=== PATIENT | female | born 1970 | race Caucasian/White ===

== ENCOUNTER 2016-06-17 11:22 | Emergency (ER) | payer BC, OTHER ==
[~2016-06-17] VITALS: Ht 161.3 cm; Wt 81.0 kg
[~2016-06-17 11:22] MED LIST: ALBUAER19 INH
[2016-06-17 11:25] VITALS: TEMP 36.7; Ht 161.3 cm; Wt 81.0 kg
[2016-06-17] MEDS ORDERED: ASPIRIN 81 MG CHEW PO STA (11:41)
[2016-06-17] MEDS ORDERED: ALBUT/IPRATROP 3MG/0.5MG NEB 3 ML VIAL INH STA (11:41)
[2016-06-17] MEDS ORDERED: SODIUM CHLORIDE 0.9% 1000ML 1,000 ML IV STA (11:41)
[2016-06-17 11:46] VITALS: O2SAT 97
[2016-06-17 12:06] LABS: BASO % 0.5 %; BASO ABS # 0.05 K/uL (0-0.2); COMPLETE YES; EOS % 1.5 %; HEMATOCRIT 43.8 % (37-47); IG% 0.2 %; LYMPH ABS # 2.36 K/uL (1.2-3.4); MEAN CORPUSCULAR HEMOGLOBIN 29.5 pg (25-34); MEAN CORPUSCULAR HGB CONC 33.1 g/dl (32-36); MONO % 4.5 %; NEUT % 68.3 %; PLATELET COUNT 314 K/uL (130-400); RED BLOOD COUNT 4.92 M/uL (4.2-5.4); WHITE BLOOD COUNT 9.43 K/uL (4.8-10.8)
--- NOTE | 2016-06-17 12:13 | DIAGNOSTIC IMAGING REPORT ---
CHEST 2 VIEWS ROUTINE CLINICAL HISTORY: Chest pain. COMPARISON STUDY: Chest radiograph May 17, 2014. FINDINGS: Lung volumes are normal there is no pneumothorax or pleural effusion. Pulmonary vascularity is normal. Cardiac size is normal. Mediastinal contours are normal. There is no consolidation. IMPRESSION: No acute cardiopulmonary findings. Electronically signed by: John Bailey M.D. 06/17/2016 12:11 PM Dictated Date/Time: 06/17/2016 12:11 PM
[2016-06-17 12:23] LABS: PREG INTERNAL NEGATIVE QC NEG CLEAR BACKGROUND; PREG INTERNAL POSITIVE QC POS CONTROL LINE
[2016-06-17 12:24] LABS: BUN/CREATININE RATIO 12.1 (10-20); CALCIUM 8.8 mg/dl (8.5-10.1); CREATININE 0.68 mg/dl (0.60-1.20); POTASSIUM 4.5 mmol/L (3.5-5.1)
[2016-06-17 12:30] LABS: CKMB/CK RATIO 1.1 (0-3.0)
[2016-06-17 12:36] LABS: URINE APPEARANCE CLEAR (CLEAR); URINE BILIRUBIN NEG (NEG); URINE COLOR YELLOW; URINE NITRITE NEG (NEG); URINE PH 8.5 (4.5-7.5); URINE SPECIFIC GRAVITY 1.008 (1.000-1.030); UROBILINOGEN NEG (NEG)
[2016-06-17 12:40] LABS: MANUAL MICROSCOPIC REQUIRED? NO; REVIEW REQ? NO
[2016-06-17] MEDS ORDERED: TRAM-10 PO (13:21)
[2016-06-17] MEDS ORDERED: PRED20TA2 PO (13:21)
[2016-06-17] MEDS ORDERED: BENZ100C18 PO (13:21)
[2016-06-17 13:25] VITALS: BP 173/92; PULSE 77; O2SAT 95
--- NOTE | 2016-06-17 17:18 | EMERGENCY ROOM VISIT NOTE ---
ED Visit Note First contact with patient: 11:28 CHIEF COMPLAINT: Cough and chest pain. HISTORY OF PRESENT ILLNESS: Ms. Weaver is a 45-year-old white female who ambulates into the ED complaining of cough and chest pain. Historically patient reports she has a history of asthma but has not had a flare in the last couple of years. Patient reports her symptoms started approximately one week ago with a cough. As the week progressed to cough worsened in its intensity and now she is experiencing chest pain, shortness of breath, chills and lightheadedness. Patient currently describes her discomfort as a burning sensation throughout the central portion of the chest. When she is up and walking and coughing at the same time she describes her discomfort as something sitting on her chest. At rest she rates her discomfort 8/10 and with walking and cough she rates her discomfort 10/10. Her severe pain has been intermittently over the last 2 days with cough and deep inspiration. She has not identified any alleviating factors related to the pain. She has noted that her cough as other symptoms worsen overnight and she has had difficulty sleeping over the last few days. She describes her cough production as white and foamy. Associated with her pain she reports she's been hearing herself wheezing, shortness of breath with activity; ambulating out to her car, she has been having chills but has not to find any augustus fevers and she is feeling lightheaded when she is coughing. She denies headache, dizziness, lightheadedness, sore throat, difficulty swallowing, voice changes, sinus congestion/drainage, neck pain/stiffness, hemoptysis, dependent edema, previous clots, claudication, cramping, recent surgery/inactivity/extended travel, estrogen and tobacco use, abdominal pain, nausea, vomiting, extremity weakness/numbness/tingling, leg swelling. PAST MEDICAL HISTORY: As noted above, bronchitis, pneumonia, unspecified stomach disorder. CURRENT MEDICATION: Albuterol. ALLERGIES TO MEDICATION: Cephalexin, cyclobenzaprine. SOCIAL HISTORY: Patient is not currently employed; she feels safe in her home environment; she admits to tobacco use. PHYSICAL EXAM: Vital Signs: Date Time Temp Pulse Resp B/P Pulse Ox O2 Delivery O2 Flow Rate FiO2 06/17/16 13:25 77 18 173/92 95 Room Air 06/17/16 12:01 76 06/17/16 11:46 97 Room Air 06/17/16 11:25 36.7 78 18 162/96 98 Room Air GENERAL: 45 year-old white female in mild distress but no respiratory distress due to symptoms. Nontoxic-appearing. Afebrile and hemodynamically stable. NEUROLOGICAL: Awake, alert and oriented 3. Answering questions appropriately and following commands. No focal motor or sensory deficits. SKIN: Warm, dry and pink. No skin eruptions or trauma noted. HEENT: Atraumatic and normocephalic. No tenderness or erythema over the frontal or maxillary sinuses. No nasal drainage but audible congestion. Airway patent. Posterior pharyngeal without erythema or edema. No JVD. Trachea midline. BACK: No tenderness over the cervical, thoracic or lumbar bony spines. No tenderness throughout the paraspinous muscles. No CVA tenderness. CHEST: Lungs sounds are decreased in the bases bilaterally with scattered wheezing and an occasional rhonchi; rhonchi clears with cough. No increased respiratory effort or rate. No excessive muscle use. Moderate tenderness over the anterior chest wall bilaterally without prominence. No bony deformities, bony crepitus or subcutaneous air. ABDOMEN: Soft and nontender with positive bowel sounds in all quadrants. No guarding, rigidity or organomegaly. EXTREMITY: Moves all extremities well on command and with purpose. All distal neurovascular statuses are intact and equal bilaterally. No dependent edema, calf tenderness or cords. EMERGENCY DEPARTMENT COURSE: Patient is assessed as noted above Laboratory Testing: Test 06/17/16 11:50 06/17/16 12:00 06/17/16 12:10 Range/Units White Blood Count 9.43 4.8-10.8 K/uL Red Blood Count 4.92 4.2-5.4 M/uL Hemoglobin 14.5 12.0-16.0 g/dL Hematocrit 43.8 37-47 % Mean Corpuscular Volume 89.0 80-100 fL Mean Corpuscular Hemoglobin 29.5 25-34 pg Mean Corpuscular Hemoglobin Concent 33.1 32-36 g/dl Platelet Count 314 130-400 K/uL Mean Platelet Volume 9.0 7.4-10.4 fL Neutrophils (%) (Auto) 68.3 % Lymphocytes (%) (Auto) 25.0 % Monocytes (%) (Auto) 4.5 % Eosinophils (%) (Auto) 1.5 % Basophils (%) (Auto) 0.5 % Neutrophils # (Auto) 6.44 1.4-6.5 K/uL Lymphocytes # (Auto) 2.36 1.2-3.4 K/uL Monocytes # (Auto) 0.42 0.11-0.59 K/uL Eosinophils # (Auto) 0.14 0-0.5 K/uL Basophils # (Auto) 0.05 0-0.2 K/uL RDW Standard Deviation 42.2 36.4-46.3 fL RDW Coefficient of Variation 13.0 11.5-14.5 % Immature Granulocyte % (Auto) 0.2 % Immature Granulocyte # (Auto) 0.02 0.00-0.02 K/uL Sodium Level 142 136-145 mmol/L Potassium Level 4.5 3.5-5.1 mmol/L Chloride Level 108 98-107 mmol/L Carbon Dioxide Level 28 21-32 mmol/L Anion Gap 6.0 3-11 mmol/L Blood Urea Nitrogen 8 7-18 mg/dl Creatinine 0.68 0.60-1.20 mg/dl Est Creatinine Clear Calc Drug Dose 105.3 ml/min Estimated GFR () 121.6 Estimated GFR (Non- 104.9 BUN/Creatinine Ratio 12.1 10-20 Random Glucose 106 70-99 mg/dl Calcium Level 8.8 8.5-10.1 mg/dl Total Bilirubin 0.4 0.2-1 mg/dl Direct Bilirubin 0.1 0-0.2 mg/dl Aspartate Amino Transf (AST/SGOT) 28 15-37 U/L Alanine Aminotransferase (ALT/SGPT) 30 12-78 U/L Alkaline Phosphatase 88 45-117 U/L Total Creatine Kinase 47 26-192 U/L Creatine Kinase MB 0.5 0.5-3.6 ng/ml Creatine Kinase MB Ratio 1.1 0-3.0 Total Protein 7.9 6.4-8.2 gm/dl Albumin 3.8 3.4-5.0 gm/dl Lipase 178 73-393 U/L Human Chorionic Gonadotropin, Qual NEG NEG Bedside Troponin I 0.000 0-0.045 ng/ml Urine Color YELLOW Urine Appearance CLEAR CLEAR Urine pH 8.5 4.5-7.5 Urine Specific [place] 1.008 1.000-1.030 Urine Protein NEG NEG Urine Glucose (UA) NEG NEG Urine Ketones NEG NEG Urine Occult Blood NEG NEG Urine Nitrite NEG NEG Urine Bilirubin NEG NEG Urine Urobilinogen NEG NEG Urine Leukocyte Esterase NEG NEG Chest X-Ray: Was read by myself and the radiologist showing no acute infiltrates , effusions or pneumothorax. Normal heart silhouette and bony anatomy. This was compared to previous and no acute changes were noted. EKG: Was read by myself and reviewed with Dr. Valdez; shows normal sinus rhythm with a ventricular rate of 61 bpm. Normal axis, intervals and complexes. Patient has a new inverted T-wave in V3 that was not on previous from May 2014. Patient was rehydrated with normal saline and was given an albuterol/Atrovent nebulizer breathing treatment, 60 mg of prednisone by mouth and an 81 mg aspirin chew. Patient was reassessed multiple times during her stay in the emergency department. After her breathing treatment her lung sounds are reassessed and she had resolution of all wheezing and she subjectively reported she was feeling much better. Patient was educated about tonight's findings and instructed on her treatment plan; she verbalizes understanding and agreement with this plan. CLINICAL IMPRESSION: Acute bronchitis. Costochondritis. DECISION MAKING: Initially my differential diagnosis I considered coronary syndrome, asthma exacerbation, costochondritis, pneumonia, pneumothorax, pulmonary embolism, rib fracture, congestive heart failure and other causes. DISPOSITION: Patient discharged home in stable condition; prior to departure she was reassessed and subjectively reported she was feeling much better. She continued to have resolution of her shortness of breath. She rated her chest discomfort 5/10. PLAN: Patient was encouraged to use 2 puffs of her albuterol inhaler every 4 hours for 5 days with a spacer and as needed for severe coughing episode, wheezing or shortness of breath. Patient was prescribed prednisone 60 mg once a day for 4 additional days. Patient was prescribed Ultram 50 mg every 6 hours as needed for chest discomfort /costochondritis. Patient was encouraged to avoid tobacco use until resolution of cough. Patient was encouraged return to the ED for worsening/uncontrolled cough, coughing up blood, fevers, uncontrolled shortness of breath, uncontrolled pain or any new/concerning symptoms.
[2016-06-19] MEDS ORDERED: VNTHFA/IN INH (11:47)
== END 2016-06-17 13:50 | disposition home or self-care (01) ==
LOC: C.EDB 11:23 → C.EDC 13:50
DX: J20.9 Acute bronchitis, unspecified (principal); M94.0 Chondrocostal junction syndrome [Tietze]; F17.200 Nicotine dependence, unspecified, uncomplicated; Z87.19 Personal history of other diseases of the digestive system; Z88.8 Allergy status to other drugs, medicaments and biological substances

== ENCOUNTER 2016-06-19 15:51 | Emergency (ER) | payer OTHER ==
[~2016-06-19] VITALS: Ht 160 cm; Wt 81.7 kg
[~2016-06-19 15:51] MED LIST changes: -ALBUAER19 INH; +BENZ100C18 PO; +PRED20TA2 PO; +TRAM-10 PO; +VNTHFA/IN INH
[2016-06-19 15:56] VITALS: BP 168/106; PULSE 75; TEMP 36.9; O2SAT 96; Ht 160 cm; Wt 81.7 kg
[2016-06-19] MEDS ORDERED: DEXT1LIQ36 PO (16:09)
[2016-06-19] MEDS ORDERED: HYDR-5688 PO (16:22)
--- NOTE | 2016-06-20 21:54 | EMERGENCY ROOM VISIT NOTE ---
ED Visit Note First contact with patient: 16:18 Chief Complaint: Repeat EKG: History of Present Illness: Ms. Weaver is a 45-year-old white female who ambulates into the ED for reevaluation. I had seen the patient 2 days ago and diagnosed her with acute bronchitis after a history of worsening cough, wheezing and now she developed chest pain. Mcintosh evaluation EKG was performed and she showed an inverted T-wave in lead V3 that was not present on her previous EKG. It was felt that the EKG change was because of lead reversal. We attempted to contact her on the night she was discharged for return of to do an EKG and she was not able to return and came back today. On reassessment today patient reports for coughing symptoms have been decreasing as well as her chest discomfort but now she is experiencing thoracic and lower back pain that she feels is related to her cough. She describes these are as a deep achy sensation. She rates her discomfort 7/10. Her pain is nonradiating. Her pain worsens with coughing. She has not identified any alleviating factors related to the pain. On her previous discharge she was given Ultram and this has not been helping her back pain but has resolved her chest discomfort. Associated with her symptoms she does report she still has a mild nonproductive cough but she is no longer wheezing or feeling short of breath and has had resolution of her chest discomfort. She denies fevers, chills, sweats, skin eruptions, skin color changes, hemoptysis, orthopnea, dependent edema, previous clots, claudication, cramping, posttussive vomiting, nausea/vomiting, extremity weakness/numbness/tingling, genital paresthesias, bowel and bladder dysfunction. Review of Systems: As noted above in history of present illness. 8 body systems were reviewed and found to be negative as noted above. Please see previous ED chart for Past Medical History, Current Medications, Allergies to Medications and Social History. Physical Examination: Vital Signs: Date Time Temp Pulse Resp B/P Pulse Ox O2 Delivery O2 Flow Rate FiO2 06/19/16 15:56 36.9 75 18 168/106 96 Room Air GENERAL: 45-year-old female in mild distress due to pain, nontoxic-appearing, afebrile and hemodynamically stable. NEUROLOGICAL: Awake, alert and oriented to person, place and time. Answering questions appropriately and following commands. Normal gait. Good hand eye coordination. No focal motor sensory deficits. SKIN: Warm, dry and pink. No soft tissue eruptions or trauma noted. HEENT: Atraumatic and normocephalic. Sclera white and conjunctiva pink. No drainage from naris, but audible congestion. Airway patent. Speech normal. Trachea midline. No jugular venous distention. BACK: No tenderness over the bony cervical, thoracic and lumbar spine. No nuchal rigidity. Full range of motion of the cervical spine. Moderate tenderness throughout the thoracic and lumbar paraspinous muscles without obvious spasm. Full range of motion at the waist. No CVA tenderness. THORAX: Lungs sounds are clear to auscultation and equal bilaterally with symmetrical chest wall. No wheezing, rales or rhonchi. No crepitus, tenderness , subcutaneous air or deformities noted. No increased respiratory effort or rate. HEART: Regular rate and rhythm. No gallops, rubs or murmurs are appreciated. ABDOMEN: Flat, soft and nontender. Positive bowel sounds in all quadrants. No guarding, rigidity or organomegaly. EXTREMITIES: Moves all extremities well on command and with purpose. All distal neurovascular statuses are intact and equal bilaterally. No calf tenderness or cords. ED Course: Patient is assessed as noted above. Repeat EKG shows sinus rhythm with sinus arrhythmia. Ventricular rate 66. Per minute. No acute ST changes indicating ischemia, injury infarction. This was compared to her previous to EKGs and showed a positive T-wave on lead V3 that was on her previous. No new signs of ischemia, injury or infarction. Patient was educated about today's findings and instructed on her treatment plan ; she verbalizes understanding and agreement with this plan. Clinical Impression: EKG reevaluation. Thoracic and lumbar back pain. Disposition: Patient discharged home in stable condition; prior to departure she was reassessed and subjectively reported she was feeling the same. Plan: Patient was encouraged to continue her current medications but her Ultram after discharge. She was given a prescription for Flow[place] and instructed on their use; she was educated on the proper precautions with narcotics and the state database was checked and no red flags were noted. Patient was encouraged to follow-up with her primary care provider return emergency department if no better in 3-4 days. Patient was encouraged return to ED for worsening symptoms, fevers, return or shortness of breath/wheezing, coughing blood or any new/concerning symptoms.
== END 2016-06-19 16:30 | disposition home or self-care (01) ==
LOC: C.EDB 15:52 → C.EDD 16:30
DX: R94.31 Abnormal electrocardiogram [ECG] [EKG] (principal); M54.5 Low back pain; M54.6 Pain in thoracic spine

== ENCOUNTER 2017-04-24 18:40 | Emergency (ER) | payer OTHER ==
[~2017-04-24] VITALS: Ht 160 cm; Wt 85.2 kg
[~2017-04-24 18:40] MED LIST changes: -BENZ100C18 PO; +DEXT1LIQ36 PO; -PRED20TA2 PO; -TRAM-10 PO
[2017-04-24 18:53] VITALS: TEMP 37.1; Ht 160 cm; Wt 85.2 kg
[2017-04-24] MEDS ORDERED: DiphenhydrAMINE HCL 50 MG/ML VIAL IV STA (19:20)
[2017-04-24] MEDS ORDERED: SODIUM CHLORIDE 0.9% 1000ML 1,000 ML IV STA (19:20)
[2017-04-24] MEDS ORDERED: PROCHLORPERAZINE 5 MG/ML 2 ML VIAL IV STA (19:20)
[2017-04-24] MEDS ORDERED: KETOROLAC TROMETHAMINE 30 MG/ML VIAL IV STA (19:20)
[2017-04-24 19:49] LABS: BASO % 0.3 %; BASO ABS # 0.03 K/uL (0-0.2); HEMATOCRIT 43.8 % (37-47); HEMOGLOBIN 15.2 g/dL (12.0-16.0); IG# 0.02 K/uL (0.00-0.02); LYMPH % 25.5 %; LYMPH ABS # 2.62 K/uL (1.2-3.4); MEAN CELL VOLUME 89.2 fL (80-100); MEAN CORPUSCULAR HGB CONC 34.7 g/dl (32-36); MEAN PLATELET VOLUME 9.2 fL (7.4-10.4); MONO % 6.1 %; MONO ABS # 0.63 K/uL (0.11-0.59); NEUT % 66.9 %; NEUT ABS # 6.88 K/uL (1.4-6.5); PLATELET COUNT 280 K/uL (130-400); RED CELL DISTRIBUTION WIDTH CV 12.7 % (11.5-14.5); RED CELL DISTRIBUTION WIDTH SD 41.6 fL (36.4-46.3); WHITE BLOOD COUNT 10.28 K/uL (4.8-10.8)
[2017-04-24 20:20] LABS: ALBUMIN 4.1 gm/dl (3.4-5.0); CALCIUM 9.6 mg/dl (8.5-10.1); CREATININE 0.67 mg/dl (0.60-1.20); POTASSIUM 3.7 mmol/L (3.5-5.1)
[2017-04-24 20:23] LABS: TOTAL PROTEIN 8.1 gm/dl (6.4-8.2)
--- NOTE | 2017-04-24 20:42 | DIAGNOSTIC IMAGING REPORT ---
HEAD WITHOUT CONTRAST (CT) CLINICAL HISTORY: 46 years-old Female with WILSON. Acute headache TECHNIQUE: Multiple axial CT images of the head were obtained without contrast. A dose lowering technique was utilized adhering to the principles of ALARA. CT DOSE: 537.48 mGy.cm COMPARISON: CT head 05/17/2014. FINDINGS: No acute intracranial hemorrhage, midline shift, intracranial mass, hydrocephalus, territorial ischemia or abnormal extra-axial collection. The calvarium is intact. The paranasal sinuses, mastoid air cells, and middle ear cavities are clear. IMPRESSION: No acute intracranial abnormality. The above report was generated using voice recognition software. It may contain grammatical, syntax or spelling errors. Electronically signed by: Chip Quiles M.D. 04/24/2017 8:40 PM Dictated Date/Time: 04/24/2017 8:38 PM
[2017-04-24 21:13] VITALS: BP 167/95; PULSE 69; O2SAT 94
--- NOTE | 2017-04-25 00:21 | EMERGENCY ROOM VISIT NOTE ---
History Report prepared by Rima: Timmy Regan Under the Supervision of: Dr. Boyd Olivier D.O. First contact with patient: 19:12 Chief Complaint: HEADACHE Stated Complaint: HEADACHE History of Present Illness The patient is a 46 year old female who presents to the Emergency Room with complaints of a constant headache that started at 0500 this morning. She rates her pain as a 10/10 in severity. The patient states that she has a history of migraines for the past 30 years, which she reports she experiences about once a week. She reports that her migraine pain is typically located all over her head. The patient states that she developed a headache this morning, which is located on her neck, posterior side of her head, and around her temples. She states she has been constantly nauseous and has experienced episodes of vomiting. She reports she has also been experiencing weakness. The patient states that she has experienced similar symptoms about once every 3 to 6 months. The patient denies cough, rhinorrhea, change in vision, fevers, chest pain, shortness of breath, diarrhea, pain with urination, and melena. She reports a history of hypertension, which she takes Lisinopril for. The patient states that she has not been taking her pill recently. Source of History: patient Onset: 0500 this morning Position: head, neck Symptom Intensity: 10/10 Timing: constant Modifying Factors (Worsening): other (smell) Associated Symptoms: + neck pain, + nausea, + vomiting, + weakness, No fevers, No cough, No chest pain, No SOB, No melena, No diarrhea, No urinary symptoms Review of Systems See HPI for pertinent positives & negatives. A total of 10 systems reviewed and were otherwise negative. Past Medical & Surgical Medical Problems: (1) Asthma (2) Bronchitis Surgical Problems: (1) H/O: hysterectomy (2) Hx of cholecystectomy Family History Diabetes mellitus FH: gallbladder disease FH: heart disease FH: lung disease FHx: cancer Hypertension Social History Smoking Status: Current Every Day Smoker Alcohol Use: occasionally Drug Use: none Marital Status: Housing Status: lives with significant other Occupation Status: employed Current/Historical Medications Scheduled PRN Albuterol Hfa (Ventolin Hfa), 2 PUFFS INH Q6H PRN for Wheezing Htuapqbwygzjneme-Nlogddlvfy-Rw (Vicks Nyquil Cold & Flu), 1 DOSE PO UD PRN for Cold/Flu Symptoms Allergies Coded Allergies: Cephalexin (Verified Allergy, Intermediate, BLISTERS, 04/24/17) Cyclobenzaprine (Verified Adverse Reaction, Unknown, ., 04/24/17) Physical Exam Vital Signs Date Time Temp Pulse Resp B/P (MAP) Pulse Ox O2 Delivery O2 Flow Rate FiO2 04/24/17 21:13 69 16 167/95 94 04/24/17 20:47 74 16 172/86 96 Room Air 04/24/17 20:03 70 18 168/110 95 Room Air 04/24/17 18:53 37.1 89 16 181/101 95 Room Air Physical Exam GENERAL: Sitting up in bed, alert, well appearing, well nourished, no distress, non-toxic EYE EXAM: normal conjunctiva. PERRL and EOM's intact. OROPHARYNX: no exudate, no erythema, lips, buccal mucosa, and tongue normal and mucous membranes are moist NECK: supple, no nuchal rigidity, no adenopathy, acute reproducible tenderness at base of OA tracking down bilateral cervical region up into her forehead and through temples, same as stated complaint. LUNGS: Clear to auscultation. Normal chest wall mechanics HEART: no murmurs, S1 normal and S2 normal ABDOMEN: abdomen soft, non-tender, normo-active bowel sounds, no masses, no rebound or guarding. BACK: Back is symmetrical on inspection and there is no deformity, no midline tenderness, no CVA tenderness. SKIN: no rashes and no bruising UPPER EXTREMITIES: upper extremities are grossly normal. LOWER EXTREMITIES: No pitting edema. NEURO EXAM: Normal sensorium, cranial nerves II-XII intact, normal speech, no weakness of arms, no weakness of legs. No drift. Finger to nose intact. Gross sensation intact. Medical Decision & Procedures ER Provider Diagnostic Interpretation: Radiology results as stated below per my review and the radiologist's interpretation: HEAD WITHOUT CONTRAST (CT) CLINICAL HISTORY: 46 years-old Female with WILSON. Acute headache TECHNIQUE: Multiple axial CT images of the head were obtained without contrast. A dose lowering technique was utilized adhering to the principles of ALARA. CT DOSE: 537.48 mGy.cm COMPARISON: CT head 05/17/2014. FINDINGS: No acute intracranial hemorrhage, midline shift, intracranial mass, hydrocephalus, territorial ischemia or abnormal extra-axial collection. The calvarium is intact. The paranasal sinuses, mastoid air cells, and middle ear cavities are clear. IMPRESSION: No acute intracranial abnormality. The above report was generated using voice recognition software. It may contain grammatical, syntax or spelling errors. Electronically signed by: Chip Quiles M.D. 04/24/2017 8:40 PM Dictated Date/Time: 04/24/2017 8:38 PM Laboratory Results 04/24/17 19:37 Red Blood Count 4.91, Mean Corpuscular Volume 89.2, Mean Corpuscular Hemoglobin 31.0, Mean Corpuscular Hemoglobin Concent 34.7, Mean Platelet Volume 9.2, Neutrophils (%) (Auto) 66.9, Lymphocytes (%) (Auto) 25.5, Monocytes (%) (Auto) 6.1, Eosinophils (%) (Auto) 1.0, Basophils (%) (Auto) 0.3, Neutrophils # (Auto) 6.88, Lymphocytes # (Auto) 2.62, Monocytes # (Auto) 0.63, Eosinophils # (Auto) 0.10, Basophils # (Auto) 0.03 04/24/17 19:37 Test 04/24/17 19:37 White Blood Count 10.28 K/uL (4.8-10.8) Red Blood Count 4.91 M/uL (4.2-5.4) Hemoglobin 15.2 g/dL (12.0-16.0) Hematocrit 43.8 % (37-47) Mean Corpuscular Volume 89.2 fL (80-100) Mean Corpuscular Hemoglobin 31.0 pg (25-34) Mean Corpuscular Hemoglobin Concent 34.7 g/dl (32-36) Platelet Count 280 K/uL (130-400) Mean Platelet Volume 9.2 fL (7.4-10.4) Neutrophils (%) (Auto) 66.9 % Lymphocytes (%) (Auto) 25.5 % Monocytes (%) (Auto) 6.1 % Eosinophils (%) (Auto) 1.0 % Basophils (%) (Auto) 0.3 % Neutrophils # (Auto) 6.88 K/uL (1.4-6.5) Lymphocytes # (Auto) 2.62 K/uL (1.2-3.4) Monocytes # (Auto) 0.63 K/uL (0.11-0.59) Eosinophils # (Auto) 0.10 K/uL (0-0.5) Basophils # (Auto) 0.03 K/uL (0-0.2) RDW Standard Deviation 41.6 fL (36.4-46.3) RDW Coefficient of Variation 12.7 % (11.5-14.5) Immature Granulocyte % (Auto) 0.2 % Immature Granulocyte # (Auto) 0.02 K/uL (0.00-0.02) Anion Gap 5.0 mmol/L (3-11) Est Creatinine Clear Calc Drug Dose 107.3 ml/min Estimated GFR () 121.3 Estimated GFR (Non- 104.7 BUN/Creatinine Ratio 9.4 (10-20) Calcium Level 9.6 mg/dl (8.5-10.1) Total Bilirubin 0.5 mg/dl (0.2-1) Direct Bilirubin 0.1 mg/dl (0-0.2) Aspartate Amino Transf (AST/SGOT) 11 U/L (15-37) Alanine Aminotransferase (ALT/SGPT) 20 U/L (12-78) Alkaline Phosphatase 87 U/L (45-117) Total Protein 8.1 gm/dl (6.4-8.2) Albumin 4.1 gm/dl (3.4-5.0) Lipase 117 U/L (73-393) Laboratory results per my review. Medications Administered Medications (Trade) Dose Ordered Sig/Rajiv Route Start Time Stop Time Status Last Admin Dose Admin Diphenhydramine HCl (Benadryl Inj) 50 mg NOW STAT IV 04/24/17 19:20 04/24/17 19:22 DC 04/24/17 20:02 50 MG Prochlorperazine Edisylate (Compazine Inj) 10 mg NOW STAT IV 04/24/17 19:20 04/24/17 19:22 DC 04/24/17 20:02 10 MG Ketorolac Tromethamine (Toradol Inj) 30 mg NOW STAT IV 04/24/17 19:20 04/24/17 19:22 DC 04/24/17 20:01 30 MG Sodium Chloride 1,000 ml @ 999 mls/hr Q1H1M STAT IV 04/24/17 19:20 04/24/17 20:20 DC 04/24/17 20:01 999 MLS/HR ED Course ED COURSE: Vital signs were reviewed and showed hypertensive. The patients medical record was reviewed The above diagnostic studies were performed and reviewed. ED treatments and interventions as stated above. 1912: The patient was evaluated in room C11A. A complete history and physical examination was performed. 1919: Ordered Sodium Chloride 1000 ml @ 999 mls/hr IV, Toradol Injection 30 mg Iv, Compazine Injection 10 mg IV, Benadryl Injection 50 mg IV. 2049: Upon reevaluation, the patient is doing well. I discussed my findings with the patient and she understands and agrees with the treatment plan. Based on the patients age, coexisting illnesses, exam and lab findings the decision to treat as an outpatient was made. The patient remained stable while under my care. The patient appeared well at the time of discharge. Medical Decision Differential Diagnosis includes but is not limited to headache, tension headache , cluster headache, migraine, subarachnoid hemorrhage, meningitis, mass, central venous thrombus, concussion, trauma and epidural/subdural hemorrhage. Patient is a 46-year-old female presents to ER for headache which started around 5 AM this morning. Came on gradually and progressively worsened. She has a history of migraines which have been present for the past 30 years. She notes that she gets a headache like this once every 3-6 months. No fevers. CBC along with BMP, LFTs and bilirubin lipase were normal. She is given IV fluids, Benadryl, Toradol and Compazine. She had significant improvement of her headache. On exam she had complete reproducible pain the base of her neck/ OA joint tracking distally into the cervical spine and cephalad up to the top of her head. I do favor this is all musculoskeletal as it is completely reproducible. She is completely neurologically intact with a negative CT. She was updated at bedside discharge follow-up PCP as an outpatient. Discussed with Pt concerning signs and symptoms to watch out for. Pt was instructed to follow up with their PCP and discussed with the patient their option to return to the ED at anytime for persistent or worsening symptoms. The appropriate anticipatory guidance and out-patient management, including indications for return to the emergency department, were explained at length to the patient and understood. Medication Reconcilliation Current Medication List: was personally reviewed by me Blood Pressure Screening Patient's blood pressure: Elevated blood pressure Blood pressure disposition: Referred to PCP Impression Primary Impression: Headache Additional Impression: HTN (hypertension) Scribe Attestation The scribe's documentation has been prepared under my direction and personally reviewed by me in its entirety. I confirm that the note above accurately reflects all work, treatment, procedures, and medical decision making performed by me. Departure Information Dispostion Home / Self-Care Referrals No Doctor, Assigned (PCP) Forms HOME CARE DOCUMENTATION FORM, IMPORTANT VISIT INFORMATION Patient Instructions Headache Pain, My [facility] Additional Instructions Please follow up with your primary care doctor with in the next 24 hours. Any worsening of your symptoms, please return to the ED immediately. This includes any fevers greater than 100.4, worsening pain, chest pain, shortness breath, persistent nausea, vomiting, unable to eat or drink, or any other concerning signs or symptoms from your standpoint. You were found to have a blood pressure greater than 120 systolic over 90 diastolic. Due to the new Medicare guidelines, we are now recommending that you follow up with your primary care doctor in regards to this elevated blood pressure. Please continue your lisinopril as previously prescribed. Problem Qualifiers Primary Impression: Headache Headache type: unspecified Headache chronicity pattern: unspecified pattern Intractability: not intractable Qualified Codes: R51 - Headache Additional Impression: HTN (hypertension) Hypertension type: unspecified Qualified Codes: I10 - Essential (primary) hypertension
== END 2017-04-24 21:06 | disposition home or self-care (01) ==
LOC: C.EDB 18:41 → C.EDC 21:06
DX: R51 Headache (principal); I10 Essential (primary) hypertension; M54.2 Cervicalgia; R11.2 Nausea with vomiting, unspecified; R53.1 Weakness; J45.909 Unspecified asthma, uncomplicated; F17.200 Nicotine dependence, unspecified, uncomplicated; Z86.69 Personal history of other diseases of the nervous system and sense organs; Z83.3 Family history of diabetes mellitus; Z83.79 Family history of other diseases of the digestive system; Z82.49 Family history of ischemic heart disease and other diseases of the circulatory system

== ENCOUNTER 2017-06-16 21:05 | Emergency (ER) | payer OTHER ==
[~2017-06-16] VITALS: Ht 160 cm; Wt 82.3 kg
[2017-06-16 21:20] VITALS: TEMP 36.6; Ht 160 cm; Wt 82.3 kg
[2017-06-16] MEDS ORDERED: KETOROLAC TROMETHAMINE 60 MG/2 ML VIAL IM STA (21:40)
[2017-06-16] MEDS ORDERED: MoRPHine SULFATE 10 MG/ML CARP/VIAL IM STA (21:40)
[2017-06-16] MEDS ORDERED: DEXAMETHASONE **PF** INJ 10 MG/ML VIAL PO ONE (21:45)
[2017-06-16] MEDS ORDERED: METH4PAK PO (21:48)
[2017-06-16 22:29] VITALS: BP 182/89; PULSE 77; O2SAT 96
--- NOTE | 2017-06-16 23:56 | EMERGENCY ROOM VISIT NOTE ---
History First contact with patient: 21:32 Chief Complaint: BACK PAIN Stated Complaint: BACK PAIN History of Present Illness The patient is a 46 year old female who presents to the Emergency Room with complaints of low back pain that radiates down her legs described as aching, ranging in severity 8 out of 10 that is worse with activity and better with rest. 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 She has been on her feet more. She hss a history of sciatica. No recent flares. Patient used to see the pain clinic but was kicked out. Patient tried Tylenol Motrin and Ultram with no improvement of symptoms. Patient denies loss of bowel bladder control, saddle anesthesia, fever, chills, leg weakness, IV drug abuse, trauma, fall, abdominal pain, chest pain or any other medical complaints. Review of Systems An 10 system review of systems was completed with positives and pertinent negatives listed in the HPI. Past Medical/Surgical History Medical Problems: (1) Asthma (2) Bronchitis Surgical Problems: (1) H/O: hysterectomy (2) Hx of cholecystectomy Family History Diabetes mellitus FH: gallbladder disease FH: heart disease FH: lung disease FHx: cancer Hypertension Social History Smoking Status: Current Every Day Smoker Alcohol Use: occasionally Drug Use: none Marital Status: Housing Status: lives with significant other Occupation Status: employed Current/Historical Medications Scheduled Methylprednisolone (Medrol Dosepak), 0 PO DAILY Scheduled PRN Albuterol Hfa (Ventolin Hfa), 2 PUFFS INH Q6H PRN for Wheezing Aqjjsfdtajwidjsf-Oimaqlbygt-Nn (Vicks Nyquil Cold & Flu), 1 DOSE PO UD PRN for Cold/Flu Symptoms Physical Exam Vital Signs Date Time Temp Pulse Resp B/P (MAP) Pulse Ox O2 Delivery O2 Flow Rate FiO2 06/16/17 22:29 77 18 182/89 96 06/16/17 21:20 36.6 83 18 203/109 96 Room Air Physical Exam VITALS: Vitals are noted on the nurse's note and reviewed by myself. Vital signs hypertensive GENERAL: Pleasant female who appears in pain, in no acute distress, nondiaphoretic, well-developed well-nourished. SKIN: Capillary reflex less than 2 seconds. HEENT: Normocephalic. PERRLA. EOMI. Nares patent. Mucous membranes moist. Neck is supple without nuchal rigidity. HEART: Regular rate and rhythm without murmurs gallops or rubs. LUNGS: Clear to auscultation bilaterally without wheezes, rales or rhonchi. No retractions or accessory muscle use. ABDOMEN: Positive bowel sounds x 4. Normal tympanic percussion. Soft, nontender, without masses or organomegaly. Barr sign negative. No guarding or rebound tenderness. MUSCULOSKELETAL: No gross musculoskeletal defects. No pedal edema. No calf tenderness. No thoracic or lumbar tenderness on exam. Positive straight leg raise on the right. Patient can ambulate on toes and heels. NEURO: Patient was alert and oriented to person place and time. Normal sensation to light and sharp touch. Deep tendon reflexes 2+ patella bilaterally. No focal neurological deficits. Medical Decision & Procedures Medications Administered Medications (Trade) Dose Ordered Sig/Rajiv Route Start Time Stop Time Status Last Admin Dose Admin Dexamethasone Sodium Phosphate (Dexamethasone Inj Pf) 10 mg NOW ONCE PO 06/16/17 21:45 06/16/17 21:46 DC 06/16/17 22:18 10 MG Ketorolac Tromethamine (Toradol Inj) 60 mg NOW STAT IM 06/16/17 21:40 06/16/17 21:44 DC 06/16/17 22:19 60 MG Morphine Sulfate (MoRPHine SULFATE INJ) 10 mg NOW STAT IM 06/16/17 21:40 06/16/17 21:44 DC 06/16/17 22:19 10 MG ED Course Prior records/ancillary studies reviewed. Triage Nursing notes reviewed. The patient's history was concerning for back pain. Differential diagnosis: Etiologies such as musculoskeletal, disc herniation, fracture, aortic disease, metastatic disease, cord compression, discitis, infection, renal colic, gastrointestinal, acute exacerbation of chronic back pain, sciatica, cauda equina, as well as others were entertained. Physical findings: As above. No focal neurologic findings noted. ER treatment provided: Morphine, Toradol, Decadron On reassessment the patient felt better. Diagnostics interpreted by me: Deferred This appears to be consistent with sciatica. Patient was neurovascularly and neurologically intact. There was no trauma. She has no deficits. She is advised to follow-up with orthopedic spine or family care in a few days and to reinitiate physical therapy. She is advised to monitor her blood pressure is as high today. Patient states when she is in pain her blood pressure does go up. She does take blood pressure medication. She took it today. Patient was advised to return to the ER immediately for severe pain, numbness, tingling, vomiting, inability to walk, worsening signs or symptoms or as needed. The patient's physical examination and detailed history did not reveal any red flags for back pain such as those listed in the differential diagnosis. Therefore advanced diagnostics and consultations were felt to be unwarranted. Patient ambulated out of the ER without any difficulties. By the evaluation outlined above emergent etiologies such as fracture, aortic disease, metastatic disease, infection, renal colic, gastrointestinal, cord compression, cauda equina, as well as others were deemed relatively unlikely. The pt informed about the findings as listed above. All questions were answered and pleased with the treatment. Return instructions were outlined and the patient was discharged in stable condition. Outpatient prescription management: Medrol Dosepak Referral: The patient was referred back to orthopedic spine and/or primary care physician for follow-up in 2 to 3 days for a recheck of the current condition. The chart was completed utilizing [employer] Speech voice recognition software. Grammatical errors, random word insertions, pronoun errors, and incomplete sentences are an occassional consequence of this system due to software limitations, ambient noise, and hardware issues. Any formal questions or concerns about the content, text, or information contained within the body of this dictation should be directly addressed to the physician baking assistant for clarification. Medical Decision As above [place] Drug Monitoring Program Search Results: patient reviewed within database, no issues identified Medication Reconcilliation Current Medication List: was personally reviewed by me Blood Pressure Screening Patient's blood pressure: Elevated blood pressure Blood pressure disposition: Referred to PCP Impression Primary Impression: Sciatica Departure Information Dispostion Home / Self-Care Condition GOOD Prescriptions Methylprednisolone (MEDROL DOSEPAK) 4 Mg Prem 0 PO DAILY, #1 PKT Prov: Cony Roche ., TYRA 06/16/17 Referrals No Doctor, Assigned (PCP) Nader Seaman D.O. Forms HOME CARE DOCUMENTATION FORM, IMPORTANT VISIT INFORMATION Patient Instructions My [facility], ED Sciatica Additional Instructions DO NOT drive, drink alcohol, operate machinery, or perform dangerous activities today. You were given medications in the ER that can affect your ability to safely function or operate a vehicle. Monitor your blood pressure. It was high. Medrol Dosepak as directed. Recommend yoga and/or Pilates for back pain to help strengthen uo your core. Recommend physical therapy to help strengthen up your core. Recommend a healthy weight. Ibuprofen(Motrin, Advil) may be used for fever or pain. Use 600mg every six hours as needed. Take with food. Avoid using more than 2400mg in a 24 hour period. Do not use 2400mg per day for more than three consecutive days without physician direction. Prolonged inappropriate use can lead to stomach upset or ulcers. This medication can be taken if you need to drive, work, or perform activities which may be dangerous when taking narcotic pain medication. (AND/OR) Acetaminophen(Tylenol) may be used for fever or pain. Use 1000mg every six hours as needed. Avoid using more than 3000mg in a 24 hour period. This medication can be taken if you need to drive, work, or perform activities which may be dangerous when taking narcotic pain medication. Rest and avoid heavy lifting until your symptoms resolve and then gradually return to full activity. A good rule of thumb is if it hurts your back to perform a certain activity, then it should be avoided until you are healthy again. A heating pad, warm compresses, or a hot shower may help with tight muscles and can be done several times a day as needed. Continue current medications. Return to the ER immediately for any numbness, tingling, severe pain, loss of control of your bowels or bladder, inability to walk, or as needed. Follow up with your primary care physician/orthopedics spine within 3-5 days for a recheck of your current condition. Problem Qualifiers Primary Impression: Sciatica Laterality: right Qualified Codes: M54.31 - Sciatica, right side
== END 2017-06-16 22:31 | disposition home or self-care (01) ==
LOC: C.EDB 21:07
DX: M54.41 Lumbago with sciatica, right side (principal); M54.42 Lumbago with sciatica, left side; F17.210 Nicotine dependence, cigarettes, uncomplicated